=== PATIENT | male | born 1995 | race Caucasian/White ===

== ENCOUNTER → 2020-01-26 | Outpatient (CLI) | payer BC ==
--- NOTE | 2020-01-26 11:12 | RAD ---
ABDOMEN COMPLETE History: Left upper quadrant abdominal pain for 2 months Comparison: None. Findings: Multiple sonographic images of the abdomen are submitted. Pancreas is not well-visualized due to bowel gas. Abdominal aorta is also not well visualized, proximal visualized caliber within normal limits. There is segmental visualization of the inferior vena cava. Gallbladder is present without demonstrable intraluminal abnormality, wall thickening, or pericholecystic fluid. There may be some mild coarsening of the hepatic echotexture, no focal hepatic lesion demonstrated. Right lobe of the liver measured 17 cm longitudinal. Common bile duct is not dilated, less 0.2 cm. Right kidney measured 10.8 x 4.4 x 4.6 cm, no hydronephrosis. Spleen measured up to 10.2 cm. No free fluid is demonstrated. Left kidney measured 11 x 4.4 x 5 cm, no hydronephrosis. Impression: 1. Other than possible mild hepatic steatosis, no other significant abnormality is demonstrated. Pancreas and most of the abdominal aorta are obscured on this exam. Electronically signed by: Talat Solis MD (01/26/2020 11:09 AM) [id number]
== END | disposition home or self-care (01) ==
LOC: US 09:46
PROVIDERS: ATTEND Nurse Practitioner Family
DX: R10.12 Left upper quadrant pain (principal)
CPT/HCPCS: 76700